=== PATIENT | male | born 1990 | race Caucasian/White ===

== ENCOUNTER 2021-07-29 15:44 | Outpatient (CLI) | payer OTHER | END 2021-07-29 15:50 | disposition home or self-care (01) | LOC: LAB 15:44 | DX: J20.8 Acute bronchitis due to other specified organisms (principal); J98.8 Other specified respiratory disorders; J12.89 Other viral pneumonia; R50.9 Fever, unspecified; R06.2 Wheezing; R05.8 Other specified cough ==